=== PATIENT | female | born 1995 | race Caucasian/White ===

== ENCOUNTER 2016-12-11 12:15 | Inpatient (IN) ==
--- NOTE | 2016-12-11 13:29 | Diag Imaging Result Document ---
PROCEDURE NAME: ABDOMEN/PELVIS W/CONTRAST - 12/11/2016 CT ABDOMEN AND PELVIS WITH IV CONTRAST: COMPARISON: None available. FINDINGS: There is atelectasis at the lung bases, more prominent on the left and a trace left pleural effusion. There has been a very recent cholecystectomy. There is fluid that is tracking around the liver and extending from the gallbladder fossa to the mid and left side of the abdomen, and there is a fairly large amount of fluid layering in the pelvis. This is consistent with a biliary leak. Fluid is also seen tracking around the pancreas, and there are locules of fluid around the stomach. There is nothing specific for abscess. There is no evidence of appendicitis. The kidneys are unremarkable. The urinary bladder is unremarkable. The uterus appears normal and there are no adnexal lesions identified. There is a tampon in the vagina. The remainder of the solid viscera of the abdomen and pelvis and the remainder of the GI tract is essentially unremarkable. IMPRESSION: 1. Fairly large amount of fluid throughout the abdomen and in the pelvis that appears to represent a biliary leak from a recent cholecystectomy. 2. Other incidental/nonacute findings detailed above.
[2016-12-11] MEDS ORDERED: D5 1/2 NS 1,000 ML IV ONE (13:30)
[2016-12-11] MEDS ORDERED: KEFZOL 1 GM/D5W 50 ML ONE (14:13)
[2016-12-11] MEDS ORDERED: REGLAN ONE (14:55)
[2016-12-11] MEDS ORDERED: PEPCID ONE (14:56)
[2016-12-11] MEDS ORDERED: TRANSDERM-SCOP ONE (14:56)
[2016-12-11] MEDS ORDERED: DILAUDID ONE ×2 (16:27→18:53)
[2016-12-11] MEDS ORDERED: LR 1,000 ML ONE (16:42)
[2016-12-11] MEDS ORDERED: MARCAINE 0.25% PF/EPI 1:200,000 ONE (16:42)
[2016-12-11] MEDS ORDERED: FENTANYL ONE (18:15)
[2016-12-11] MEDS ORDERED: DIPRIVAN 1% ONE (18:15)
[2016-12-11] MEDS ORDERED: D5 1/2 NS 1,000 ML ONE (19:11)
[2016-12-11] MEDS ORDERED: TYLENOL PO PRN (20:40)
--- NOTE | 2016-12-11 21:52 | OPERATIVE NOTE ---
PROCEDURE DATE: 12/11/2016 PREOP: Postoperative bile leak 8 days status post cholecystectomy. PROCEDURE: Laparoscopy with drain placement right subphrenic space and pelvis. DESCRIPTION OF PROCEDURE: Patient was brought to the operating room. After satisfactory induction of IV and endotracheal anesthesia, athrombic TEDs and a Kwok catheter were placed. Her abdomen was broadly prepped and draped in the appropriate manner. Initially, the infraumbilical incision was reopened with removal of the Surgilon sutures. The peritoneum was entered and a Horace trocar was placed. The abdomen was insufflated to 3.5 L of carbon dioxide. On introduction of the camera, there was seen to be a large fluid collection around the liver in the left upper quadrant and right upper quadrant. The old right epigastric 10 mm trocar incision was likewise reopened and a 10 mm trocar was placed. Several hundred milliliters in the right subphrenic space was aspirated. A portion of it was sent for routine culture. In the left lower quadrant a 10 mm trocar was placed and another Kanu-Don drain was threaded down into the pelvis. A total of about 900 mL of bile was aspirated out. The drains were anchored with 0 Surgilon and the abdomen was deflated. The subumbilical incision underwent reclosure with 0 Surgilon. The other 2 skin incisions were closed with stainless steel clips. Sterile dressings were applied. Kwok catheter was removed. The patient was awakened and extubated in the operating room and transferred to recovery. ESTIMATED BLOOD LOSS: Around 5-10 mL.
[2016-12-11] MEDS: ZOFRAN IV PRN (22:00)
[2016-12-11] MEDS: NORCO-10 PO PRN (22:05)
[2016-12-12] MEDS: MORPHINE IV PRN ×4 (03:45→20:16)
[2016-12-12] MEDS: ZOFRAN IV PRN ×2 (03:46→17:55)
[2016-12-12] MEDS: NORCO-10 PO PRN ×4 (06:49→23:49)
[2016-12-12 07:07] LABS: BASO% 0.3 % (0.0-0.8); HEMATOCRIT 34.6 % (37.0-47.0); HEMOGLOBIN 11.5 g/dL (12.0-16.0); IMM GRAN# 0.04 X1000 (0.0-0.04); IMM GRAN% 0.3 % (0.0-0.5); LYMPH# 0.74 X1000 (1.2-3.4); LYMPH% 6.2 % (20.5-51.1); MANUAL DIFF NEEDED? YES; MCH 30.6 PG (27-31); MCHC 33.2 g/dL (33-37); MONO# 0.63 X1000 (0.11-0.59); MONO% 5.3 % (1.7-9.3); MPV 10.3 FL (7.4-10.4); NEUT% 87.9 % (42.2-75.2); PLT 353 X1000 (130-400); RBC 3.76 XMIL (4.2-5.4)
[2016-12-12 07:28] LABS: AGAP 15; ALBUMIN 2.9 g/dL (3.5-5.0); ALKALINE PHOSPHATASE 205 U/L (32-104); BUN 9 mg/dL (8-22); CALCIUM 8.9 mg/dL (8.8-10.2); CHLORIDE 97 mmol/L (98-107); COSMO 273; GOT 32 U/L (10-30); GPT 37 U/L (10-36); POTASSIUM 4.1 mmol/L (3.5-5.1); SODIUM 137 mmol/L (136-145); TCO2 25 mmol/L (25-35); TOTAL BILIRUBIN 0.93 mg/dL (0.20-1.00)
[2016-12-12 07:29] LABS: BANDS 8 % (0-1); LYMPHS 8 % (21-51); MONO 4 % (1-9)
--- NOTE | 2016-12-12 08:57 | Diag Imaging Result Document ---
PROCEDURE NAME: CHEST-PORTABLE - 12/12/2016 SINGLE FRONTAL RADIOGRAPH OF THE CHEST: COMPARISON: 12/02/2016. FINDINGS: Inspiration is suboptimal. There is likely minimal bibasilar atelectasis. The lungs are clear otherwise. There appears to be a trace effusion on the left. Cardiac silhouette and central vasculature are grossly unremarkable. IMPRESSION: Mild bibasilar atelectasis and suggestion of a trace effusion on the left.
--- NOTE | 2016-12-12 17:10 | PROGRESS NOTE ---
DATE: 12/12/2016 PRIMARY DOCTOR: Dr. Khan. SUBJECTIVE: Patient is currently resting in bed. She just recently came from walking in the hallways with the help of her . She complains of gassy bloated feeling and abdominal pain is slightly better. She had 2 drains placed yesterday by Dr. Khan which drained bilious fluid in the right drain and some serosanguineous with bilious drainage on the left tube. She denies any nausea vomiting, she denies any blood in the stools. OBJECTIVE: Vital signs: Temperature 98.5 degrees, pulse rate of 98, respiratory rate 18, blood pressure 109/65, saturating 98% room air. Body weight 185 pounds. General Appearance: Moderately nourished lying in bed in mild distress with abdominal pain. HEENT: Pale conjunctiva. No icterus. Pupils equal, reactive to light. Neck: Supple. Abdomen: Two drains noted one the right upper quadrant 1 left upper quadrant draining bilious drainage in right side and serosanguineous drainage in the left. Hypoactive bowel sounds. Extremities: No cyanosis, clubbing, edema. Neurologic: She is alert, awake, oriented. LABS: Hemoglobin and hematocrit is 11.5 and 34.6, white count of 11.9, platelet count of 353,000. Sodium of 137, potassium 4.1, chloride 97, bicarb 25, anion gap 15, BUN of 9, creatinine 0.6, glucose of 113, calcium is 8.9, total bilirubin is 0.93, AST 32, ALT 37, alkaline phosphatase is 205, total protein 7, albumin of 2.9. IMPRESSION AND PLAN: 1. Bile leak status post cholecystectomy 8 days ago status post laparoscopy with drain placement per Dr. Khan on 12/11/2016. The patient will continue to be monitored closely. We will schedule her for ERCP in couple of days. 2. She will continue on pain control and IV fluids, IV antiemetics and IV Protonix. 3. She will continue on full liquid diet. Orders per the primary care team. 4. I discussed the plan with the patient, at bedside and all questions answered.
[2016-12-12] MEDS ORDERED: LR 0 ML ONE (18:04)
[2016-12-12] MEDS: D5 1/2 NS 1,000 ML IV SCH (18:15)
--- NOTE | 2016-12-12 18:28 | CONSULTATION ---
DATE OF CONSULTATION: 12/11/2016 GASTROENTEROLOGY CONSULT: REASON FOR CONSULTATION: Possible bile leak. HISTORY OF PRESENT ILLNESS: This is a pleasant, young 21-year-old lady who had cholecystectomy 8 days ago and doing well until the last couple of days has increasing abdominal pain, abdominal distention. The patient was brought to the ER and a CT scan of the abdomen was done by Dr. German Khan. It shows free fluid in the abdomen, more in the left subphrenic space as well as pelvis. Dr. Khan thinks the patient has a bile leak. He asked me to see the patient. PAST MEDICAL HISTORY: Essentially unremarkable other than cholecystectomy. MEDICATIONS: As per MAR. SOCIAL HISTORY: She does not drink, smoke, or use drugs. REVIEW OF SYSTEMS: Negative other than HPI. PHYSICAL EXAMINATION: Revealed a pleasant lady, with in mild distress. Vital Signs: Pulse of 90, respiration 18, blood pressure 120/80, O2 saturation 100% on room air. HEENT: Questionable scleral icterus. Mild conjunctival pallor present. Neck: Supple. Trachea midline. Heart and Lungs: Normal. Abdomen: Distended, diffusely tender, but no significant signs of peritonitis. Bowel sounds are hypoactive. Extremities: Unremarkable. DIAGNOSTIC DATA: Lab data reviewed. CT scan reviewed as above. IMPRESSION: 1. Status post cholecystectomy. 2. Mild biliary ascites, most likely bile leak. I have talked to Dr. Khan. He is waiting on OR team to do a laparoscopy and put drains. Depending on the drainage of fluid over the weekend, I will decide to do an ERCP and possibly stent. She probably would require a stent. Dr. Khan and I talked about it and he agreed.
[2016-12-12] MEDS: PROTONIX IV SCH (20:16)
[2016-12-12] MEDS ORDERED: SODIUM CHLORIDE 0.9% INJ PRN (20:32)
[2016-12-13] MEDS: NORCO-10 PO PRN ×5 (03:46→22:07)
[2016-12-13] MEDS: D5 1/2 NS 1,000 ML IV SCH ×2 (04:26→17:56)
[2016-12-13] MEDS: PHENERGAN IV PRN (04:26)
[2016-12-13] MEDS: MORPHINE IV PRN (04:27)
[2016-12-13 06:27] LABS: BASO% 0.7 % (0.0-0.8); EOS# 0.23 X1000 (0.0-0.7); EOS% 3.1 % (0.0-10.0); HEMATOCRIT 30.8 % (37.0-47.0); LYMPH# 2.19 X1000 (1.2-3.4); LYMPH% 29.9 % (20.5-51.1); MANUAL DIFF NEEDED? NO; MCH 30.8 PG (27-31); MCHC 32.5 g/dL (33-37); MCV 94.8 FL (81-99); MONO% 9.5 % (1.7-9.3); MPV 9.3 FL (7.4-10.4); NEUT% 56.8 % (42.2-75.2); PLT 381 X1000 (130-400); RBC 3.25 XMIL (4.2-5.4)
[2016-12-13 06:32] LABS: INR 1.2; PROTIME 12.7 Seconds (9.2-11.7); PTT 27.2 Seconds (22.0-36.0)
[2016-12-13 06:59] LABS: AGAP 15; ALBUMIN 2.8 g/dL (3.5-5.0); ALKALINE PHOSPHATASE 178 U/L (32-104); BUN 8 mg/dL (8-22); CALCIUM 8.5 mg/dL (8.8-10.2); CHLORIDE 102 mmol/L (98-107); COSMO 281; GOT 46 U/L (10-30); GPT 54 U/L (10-36); POTASSIUM 3.4 mmol/L (3.5-5.1); SODIUM 142 mmol/L (136-145); TCO2 25 mmol/L (25-35); TOTAL BILIRUBIN 0.65 mg/dL (0.20-1.00); TOTAL PROTEIN 5.9 g/dL (6.3-8.3)
[2016-12-13] MEDS: LEVAQUIN 500 MG/D5W 100 ML IV SCH (17:58)
--- NOTE | 2016-12-13 19:57 | PROGRESS NOTE ---
DATE: 12/13/2016 SUBJECTIVE: The patient is currently resting in bed. Her is at the bedside. She complains of a slight improvement in her abdominal pain. She is passing flatus. Her nausea has improved. She was able to eat some liquid diet. She denies any fever or chills today. OBJECTIVE: Vitals: Temperature of 98.6 degrees, pulse of 89, respiratory rate 20, blood pressure 131/77, saturating 90% on room air. General Appearance: Moderately build, moderately nourished, lying in bed, in no acute distress. HEENT: Pale conjunctivae. No icterus. Neck: Supple. Abdomen: Drains in the right upper quadrant, left upper quadrant, draining bilious drainage. A very small amount of mild discomfort in the periumbilical region. Bowel sounds are hypoactive. Extremities: No cyanosis, clubbing, edema. Neurologic: She is alert, awake, oriented. LABORATORY: Her hemoglobin and hematocrit are 10 and 30.8, white count of 7.3, platelet count of 381,000. MCV of 94.8. INR 1.2. Sodium 142, potassium 3.4, chloride 102, bicarb 25, anion gap 15, BUN of 8, creatinine 0.7, glucose of 96, calcium 8.5, total bilirubin is 0.65, AST 46, ALT 54, alkaline phos 178, total protein 5.9, albumin of 2.8. IMPRESSION AND PLAN: 1. Bile leak status post cholecystectomy. Status post laparoscopy with drain placement with ongoing bile drainage which is slowing down as compared to yesterday. We will continue her on clear liquid diet. She will continue on IV fluids, IV antiemetics, IV Protonix. We will start her on IV antibiotics with IV Levaquin. 2. I discussed her case with Dr. Stapleton who is aware of her situation and Dr. Stapleton wants to perform endoscopic retrograde cholangiopancreatography on Wednesday. In this regard, the patient will be made nothing per oral status Wednesday. I discussed plan of care with the patient and family at the bedside and answered all questions.
[2016-12-13] MEDS: PROTONIX IV SCH ×2 (22:07→22:08)
[2016-12-14] MEDS: D5 1/2 NS 1,000 ML IV SCH ×5 (00:52→22:10)
[2016-12-14] MEDS: MORPHINE IV PRN (05:46)
[2016-12-14] MEDS: NORCO-10 PO PRN ×4 (06:51→23:07)
[2016-12-14] MEDS ORDERED: NEOSTIGMINE ONE (09:03)
[2016-12-14] MEDS ORDERED: ZOFRAN ONE (09:03)
[2016-12-14] MEDS ORDERED: TORADOL ONE (09:03)
[2016-12-14] MEDS ORDERED: XYLOCAINE-MPF 2% ONE (09:04)
[2016-12-14] MEDS ORDERED: DECADRON ONE (09:04)
[2016-12-14] MEDS ORDERED: LR 1,000 ML ONE (09:04)
[2016-12-14] MEDS ORDERED: QUELICIN (DOSE) ONE (09:04)
[2016-12-14] MEDS ORDERED: ROBINUL ONE (09:04)
[2016-12-14] MEDS ORDERED: ZEMURON ONE (09:04)
--- NOTE | 2016-12-14 09:22 | Diag Imaging Result Document ---
PROCEDURE NAME: HIDA SCAN W/O EJECT. FRACTION - 12/14/2016 HIDA SCAN WITHOUT EJECTION FRACTION: FINDINGS: 5.2 mCi of technetium 99 Choletec were administered. There is prompt uptake of radiopharmaceutical within the liver. There is quick emptying into the small bowel. No evidence of a leak. No abnormal radiopharmaceutical about the liver or in the pericolic gutter. IMPRESSION: No bile leak.
--- NOTE | 2016-12-14 14:19 | PROGRESS NOTE ---
DATE: 12/14/2016 SUBJECTIVE: Patient currently resting in bed. She is feeling better. She had a HIDA scan this morning which showed evidence of no bile leak today. The patient denies any fevers, rigors, or chills. She complains of mild soreness in abdomen. OBJECTIVE: Vital Signs: Temperature 98.3, pulse of 92, respiratory 16, blood pressure 115/80, saturating 97% on room air. General Appearance: Moderately nourished, lying in bed, in no distress. HEENT: Mild pallor. No icterus. Neck: Supple. Abdomen: Drains in the right upper quadrant and left lower quadrant draining a small amount of bilious drainage, draining amounts have been reducing every day. Discomfort in the periumbilical region. Extremities: No cyanosis, clubbing, edema. Neurologic: Alert, awake, oriented. LABORATORY STUDIES: Her hemoglobin and hematocrit are 10 and 30.8 from yesterday. Her liver enzymes yesterday revealed total bilirubin 0.65, AST 46, ALT 54, alkaline phosphatase 178, total protein 5.9, albumin of 2.8. Sodium 142, potassium 3.4, chloride 102, bicarb of 25, anion gap of 15, BUN of 8, creatinine 0.7, glucose of 96. IMPRESSION AND PLAN: Bile leak status post laparoscopy with drain placement per Dr. Khan and she has been noticed to have reduction in the drainage amounts and a HIDA scan this morning shows no active bile leak. She is scheduled for ERCP tomorrow with Dr. Stapleton. Patient will continue in the interim with IV fluids, IV antiemetics, IV Protonix and we started her on Levaquin yesterday. Above plan discussed with the patient and answered all questions.
[2016-12-14] MEDS: LEVAQUIN 500 MG/D5W 100 ML IV SCH (17:09)
[2016-12-14] MEDS: PROTONIX IV SCH (22:00)
[2016-12-14] MEDS: SODIUM CHLORIDE 0.9% INJ SCH (22:01)
[2016-12-15] MEDS: D5 1/2 NS 1,000 ML IV SCH ×4 (06:02→23:53)
[2016-12-15] MEDS: NORCO-10 PO PRN ×3 (09:10→19:56)
[2016-12-15] MEDS ORDERED: GLUCAGON ONE (12:31)
[2016-12-15] MEDS ORDERED: MYLICON DROPS (DOSE) MISC ONE (13:06)
[2016-12-15] MEDS ORDERED: DIPRIVAN 1% ONE (14:05)
[2016-12-15] MEDS ORDERED: ANESTHESIA PB SET 88 IN 5742 ONE (14:10)
[2016-12-15] MEDS ORDERED: LR 1,000 ML ONE (14:10)
[2016-12-15] MEDS ORDERED: EXTENSION SET 32 IN 4522 ONE (14:10)
[2016-12-15] MEDS: ZOFRAN IV PRN (14:26)
[2016-12-15] MEDS ORDERED: VERSED ONE (15:20)
[2016-12-15] MEDS: MORPHINE IV PRN (15:34)
--- NOTE | 2016-12-15 15:35 | Diag Imaging Result Document ---
PROCEDURE NAME: ERCP-BILIARY AND PANCREATIC - 12/15/2016 ERCP: COMPARISON: None available. FINDINGS: Eleven spot fluoroscopic images of the biliary system were provided, which was performed during ERCP by Dr. Hansen. There is perhaps mild blunting of the common bile duct as it joins the duodenum. It is unknown if this represents a filling defect. Upon opacification of the common bile duct, there was progressive development of what appeared to be intraperitoneal contrast suggesting a biliary leak to the right of the common bile duct. On the final image, there was a newly placed biliary stent in place. IMPRESSION: As above. Please correlate with live fluoroscopic imaging.
--- NOTE | 2016-12-15 17:29 | OPERATIVE NOTE ---
PROCEDURE DATE: 12/15/2016 PROCEDURE: ERCP, endoscope with sphincterotomy and stent placement. PREOPERATIVE DIAGNOSIS: Bile leak. POSTOPERATIVE DIAGNOSIS: Leak at the status post sphincterotomy and stent placed across the cystic duct all the way to bifurcation. DESCRIPTION OF PROCEDURE: After informed consent and adequate intravenous sedation, the scope was introduced to the esophagus, stomach and duodenum. Ampulla appears normal. Cholangiogram initially did not reveal any leak but on further filling of the bile duct there is leak right around the cystic duct, and by the time the procedure is finished, the leak was tracked down through the drains into the back. At this point, a wide sphincterotomy was done and a 7 cm 10- Tajik stent was placed across the bile duct across the cystic duct region and all the way to the bifurcation, again the cholangiogram was done. There was no leak. The scope was withdrawn. The patient tolerated the procedure, was transported back to recovery in satisfactory condition.
[2016-12-15] MEDS: LEVAQUIN 500 MG/D5W 100 ML IV SCH (17:37)
[2016-12-15] MEDS: PROTONIX IV SCH ×2 (19:55→22:34)
[2016-12-15] MEDS: SODIUM CHLORIDE 0.9% INJ SCH (19:56)
[2016-12-15] MEDS: PHENERGAN IV PRN (23:53)
[2016-12-16] MEDS: D5 1/2 NS 1,000 ML IV SCH ×2 (02:21→08:26)
[2016-12-16] MEDS: NORCO-10 PO PRN ×2 (02:21→08:24)
[2016-12-16 07:52] VITALS: BP 113/70
== END 2016-12-16 10:18 | disposition home or self-care (01) | DRG 395 ==
LOC: OPS 12:15 → CT 12:15 → EDSTATUS 13:05 → OBSVTOIN 14:27 → 4N 14:27
PROVIDERS: ADMIT Surgery; ATTEND Surgery
PROC: 0F788DZ Dilation of Cystic Duct with Intraluminal Device, Via Natural or Artificial Opening Endoscopic (ICD-10-PCS; 2016-12-11)
PROC: BF101ZZ Fluoroscopy of Bile Ducts using Low Osmolar Contrast (ICD-10-PCS; 2016-12-11)
PROC: 0W9G40Z Drainage of Peritoneal Cavity with Drainage Device, Percutaneous Endoscopic Approach (ICD-10-PCS; principal; 2016-12-11 17:03)
PROC: 0F798DZ Dilation of Common Bile Duct with Intraluminal Device, Via Natural or Artificial Opening Endoscopic (ICD-10-PCS; 2016-12-15 12:48)
DX: K91.89 Other postprocedural complications and disorders of digestive system (principal); K83.8 Other specified diseases of biliary tract
CPT/HCPCS: 71010; 74177; 74330; 78226; 80053; 81025; 85025; 85610; 85730; 87070; 87075; 87205; 94761; 94799; 96374; 96375; A9537; C2617; C9113; J0330; J0690; J1100; J1170; J1610; J1885; J2250; J2270; J2405; J2550; J2765; J3010; J7120; Q9966; Q9967; J2710; S0028; S0164

== ENCOUNTER 2017-05-01 01:49 | Observation (INO) ==
[2017-05-01 02:36] LABS: MANUAL DIFF NEEDED? NO
[2017-05-01 02:37] LABS: BASO% 0.4 % (0.0-0.8); EOS# 0.05 X1000 (0.0-0.7); EOS% 0.7 % (0.0-10.0); HEMATOCRIT 36.9 % (37.0-47.0); HEMOGLOBIN 12.7 g/dL (12.0-16.0); IMM GRAN# 0.01 X1000 (0.0-0.04); IMM GRAN% 0.1 % (0.0-0.5); LYMPH% 33.4 % (20.5-51.1); MCH 32.1 PG (27-31); MCHC 34.4 g/dL (33-37); MCV 93.2 FL (81-99); MONO# 0.52 X1000 (0.11-0.59); MONO% 7.5 % (1.7-9.3); MPV 9.2 FL (7.4-10.4); NEUT% 57.9 % (42.2-75.2); PLT 255 X1000 (130-400); RBC 3.96 XMIL (4.2-5.4)
[2017-05-01 02:48] LABS: BILIRUBIN URINE NEGATIVE (NEGATIVE); BLOOD URINE 4+ (NEGATIVE); CLARITY HAZY (CLEAR); COLOR PINK; GLUCOSE URINE NEGATIVE (NEGATIVE); LEUKOCYTES URINE NEGATIVE (NEGATIVE); NITRITE URINE NEGATIVE (NEGATIVE); PROTEIN URINE TRACE mg/dL (NEGATIVE); SP GRAVITY URINE 1.005; UROBILINOGEN URINE NORMAL
[2017-05-01] MEDS ORDERED: TYLENOL ONE (02:54)
[2017-05-01] MEDS ORDERED: TYLENOL PO ONE (02:54)
[2017-05-01 02:59] LABS: URINE CULTURE PL NEEDED? YES; URINE EPITHELIAL CELLS <10 /HPF (<10); URINE SOURCE CLEAN CATCH; URINE WBC <10 /HPF (<10)
--- NOTE | 2017-05-01 03:04 | PROVIDER DOCUMENTATION ---
This chart was entered by Marilyn Anne Scribe, acting as scribe for Heber Alexander MD. HPI-Female /OB/Breast - General Chief Complaint: Female Stated Complaint: PREG/BLEEDING Time Seen by Provider: 05/01/17 02:05 Source: reports: patient Allergies/Adverse Reactions: Patient Allergies Allergy/AdvReac Type Severity Reaction Status Date / Time No Known Allergies Allergy Verified 05/01/17 01:57 Home Medications: Home Medication List Medication Instructions Recorded Confirmed Last Taken Type NK [No Home Medications] 05/01/17 05/01/17 Unknown History - History of Present Illness-Female /OB Nature of Presenting Problem: 21 Y/O WF, ,AB positive, currently 6+ weeks ,who presents to ER with the complaint of 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 pt states that she is as she took preg test at home and they turned out to be positive. pt states that her last period was on 16 march and after that she started bleeding. pt states that she feels cramping in lower abd and L side of back. Pt has used 1 pad tonight. Does patient report she is ?: Yes Location of complaint: reports: LLQ, vaginal (bleeding) Radiation: reports: none Quality of Pain: reports: cramping Severity in ED: reports: mild Onset/Duration: reports: just prior to arrival Timing: reports: still present Context/Activities at Onset: reports: none Vaginal Symptoms: reports: other (bleeding) Vaginal Bleeding Amount: Medium/Moderate Urinary Symptoms: reports: no symptoms Related Symptoms: reports: vaginal bleeding Sexual intercourse history: reports: Not Active Associated Symptoms: reports: constipation, nausea, other (lower back pain L side, LLQ pain and vaginal bleeding) Similar Symptoms Previously?: No Recently seen or treated by another doctor?: No - LMP/ History Menstrual Status: currently Review of Systems - Adult - REVIEW OF SYSTEMS - ADULT Constitutional: reports: no symptoms reported Eyes: reports: no symptoms reported Ears, Nose, Mouth & Throat: reports: no symptoms reported Cardiovascular: reports: no symptoms reported Respiratory: reports: no symptoms reported Gastrointestinal: reports: abdominal pain (LLQ), nausea. denies: vomiting Genitourinary: reports: other (Vaginal Bleedig). denies: dysuria, hematuria Musculoskeletal: reports: back pain (L). denies: neck pain Integumentary: reports: no symptoms reported Neurological: reports: no symptoms reported Psychiatric: reports: no symptoms reported Endocrine: reports: no symptoms reported Hematologic/Lymphatic: reports: no symptoms reported Allergic/Immunologic: reports: no symptoms reported All Other Systems: Reviewed and Negative Past History - Adult - PAST MEDICAL HISTORY-ADULT Review of Records: reports: Old Records Reviewed, Nursing Assessment Review - PRIOR SURGERIES/PROCEDURES Surgical/Procedure History: reports: cholecystectomy, other (stent removed) - IMMUNIZATION STATUS Childhood Immunizations: See Nurse Assessment Flu Vaccine: See Nurse Assessment Physical Exam-General - PHYSICAL EXAM-ADULT Initial Vital Signs Reviewed: Yes - CONSTITUTIONAL General Appearance: appears well, alert - EYES Eyes: PERRL/EOMI, pink conjunctivae - HEAD, EARS, NOSE, MOUTH & THROAT HENMT: moist mucous membranes, normal ENT inspection - NECK Neck: non-tender, full range of motion, supple - RESPIRATORY Respiratory: chest non-tender, lungs clear, normal breath sounds - CARDIOVASCULAR Cardiovascular: normal peripheral pulses, regular rate, rhythm - GASTROINTESTINAL (ABDOMEN) Abdominal Exam: normal bowel sounds, tenderness (LLQ) - MUSCULOSKELETAL Back Exam: normal inspection, CVA tenderness (L) Extremity: normal range of motion, non-tender, normal gait - SKIN Integumentary: normal color, normal turgor, warm/dry - NEUROLOGIC Neurologic: grossly normal, no motor/sensory deficits - PSYCHIATRIC Psych/Mental Status: normal mood/affect, normal thought content, normal thought process, oriented x 3 Progress - PLAN OF CARE/RESULTS Progress/Plan/Lab Results: Vital Signs - 8 hr 05/01/17 01:52 05/01/17 05:00 Temperature 98.8 F 97.0 F L Pulse Rate 81 81 Respiratory Rate 20 20 Blood Pressure 132/97 115/74 O2 Sat by Pulse Oximetry 100 99 Bedside Urine ED: Urine Bedside Start: 05/01/17 02:06 Freq: ORDERED Status: Active Activity Type Activity Date Activity User E-Sign Co-Sign Detail Recorded Client Recorded Date Recorded By Document 05/01/17 02:07 [id number] 05/01/17 02:08 [id number] 05/01/17 02:07 Point of Care [Bedside Point of Care] -Lot # [id number] - Results Positive -Control Line Visible? Yes Laboratory Results - last 24 hr 05/01/17 05/01/17 05/01/17 02:00 02:30 02:30 WBC 6.89 RBC 3.96 L Hgb 12.7 Hct 36.9 L MCV 93.2 MCH 32.1 H MCHC 34.4 RDW Std Deviation 12.5 Plt Count 255 MPV 9.2 Immature Gran % (Auto) 0.1 Neut % (Auto) 57.9 Lymph % (Auto) 33.4 [place] % (Auto) 7.5 Eos % (Auto) 0.7 Baso % (Auto) 0.4 Immature Gran # (Auto) 0.01 Neut # (Auto) 3.98 Lymph # (Auto) 2.30 [place] # (Auto) 0.52 Eos # (Auto) 0.05 Baso # (Auto) 0.03 Ser , Semi-Qnt 1464.0 Urine Source CLEAN CATCH Urine Color PINK Urine Clarity HAZY A Urine pH 7.0 Ur Specific [place] 1.005 Urine Protein TRACE A Urine Ketones NEGATIVE Urine Blood 4+ Urine Nitrite NEGATIVE Urine Bilirubin NEGATIVE Urine Urobilinogen NORMAL Urine Microscopic RBC 10-20 A Urine WBC NEGATIVE Urine Microscopic WBC <10 Ur Epithelial Cells <10 Urine Bacteria 3+ Urine Glucose NEGATIVE Blood Type 05/01/17 02:30 WBC RBC Hgb Hct MCV MCH MCHC RDW Std Deviation Plt Count MPV Immature Gran % (Auto) Neut % (Auto) Lymph % (Auto) [place] % (Auto) Eos % (Auto) Baso % (Auto) Immature Gran # (Auto) Neut # (Auto) Lymph # (Auto) [place] # (Auto) Eos # (Auto) Baso # (Auto) Ser , Semi-Qnt Urine Source Urine Color Urine Clarity Urine pH Ur Specific [place] Urine Protein Urine Ketones Urine Blood Urine Nitrite Urine Bilirubin Urine Urobilinogen Urine Microscopic RBC Urine WBC Urine Microscopic WBC Ur Epithelial Cells Urine Bacteria Urine Glucose Blood Type AB POSITIVE Orders Category Date Time Status ED: Urine Bedside ORDERED Care 05/01/17 02:06 Active US PELVIC NON-PIANO ACCOMPANIST COMPLETE [US] Stat Exams 05/01/17 02:14 Taken ABORH [BBK] Stat Lab 05/01/17 02:30 Completed CBC WITH DIFF [HEME] Stat Lab 05/01/17 02:30 Completed QUANT TEST Stat Lab 05/01/17 02:[address] W/POSS RFLX CULT [URINALYSIS] Stat Lab 05/01/17 02:00 Completed URINE CULTURE [RM] Routine Lab 05/01/17 03:00 Ordered Acetaminophen [Tylenol] Med 05/01/17 02:54 Discontinued 650 mg .ROUTE .STK-MED ONE Acetaminophen [Tylenol] Med 05/01/17 02:54 Discontinued 650 mg PO NOW ONE Diltiazem [Cardizem] Med 05/01/17 03:41 Discontinued 30 mg PO NOW ONE Result Diagrams: 05/01/17 02:30 - ULTRASOUND (By Radiology) 1 US Study: Abdomen (no IUP, mildly thickened endometrium,small to moderate fluid in culdesac), Transvaginal - CONSULTS/PCP/HOSPITALIST Notification #1 *Consult/PCP/Hospitalist*: Dr. 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 Time Discussed: 04:55 Consult Disposition: Admit (admit for observation with serial quant HCG's) Departure - Departure Date of Disposition Decision: 05/01/17 Time of Disposition Decision: 05:02 DIAGNOSIS: Threatened miscarriage in early Disposition: ADMITTED INPATIENT 09 Certified Medical Emergency: Emergent Condition: Stable Referrals and Follow-Ups: None,PCP [Primary Care Provider] - - Critical Care Note This patient required my direct & personal management of CC.: Yes Attestation - Physician/ HEIDI Attestation The physician spent face to face time with patient:: Yes Advanced Practice Provider documentation review:: Supervising physician onsite and consulted in the evaluation and care of this patient. The physician did have a face to face encounter with the patient. This chart was documented by the indicated scribe, (Marilyn Anne, Rehana) and accurately reflects the services I performed and decisions made by me, Heber Alexander MD, as attested by the provider's signature.
[2017-05-01] MEDS ORDERED: CARDIZEM PO ONE (03:41)
[2017-05-01] MEDS ORDERED: NS 1,000 ML IV ONE (05:05)
[2017-05-01] MEDS: TYLENOL PO PRN ×3 (09:07→17:25)
--- NOTE | 2017-05-01 12:00 | Diag Imaging Result Doc PS360 ---
EXAM: US PELVIC NON-MANAGER HI COMPLETE - 05/01/2017 HISTORY: threatened miscarriage TECHNIQUE: Exam performed using transabdominal and transvaginal probes. COMPARISON: None. FINDINGS: There is no visible intrauterine . The endometrial echo measures 1.2 cm in thickness and is heterogeneous. The right ovary is not visualized. The left ovary is visualized, is unremarkable, and demonstrate blood flow signal Doppler images. There is no adnexal mass identified. There is a medium amount of free fluid in the cul-de-sac. IMPRESSION: No visible intrauterine . Heterogeneous endometrial echo, which measures 1.2 cm in thickness. Right ovary not visualized. Unremarkable left ovary. No visible ectopic . Medium amount of free fluid in cul-de-sac. In the presence of a positive test, considerations include very early intrauterine which is too early to be visible by ultrasound; nonvisualized ectopic ; and missed . Correlation with serial quantitative beta hCG levels, and follow-up ultrasound as needed, is recommended. The post secondary professional radiologist provided primary results at 4:23 AM on 05/01/2017. Electronically signed by Carlos Moyer 05/01/2017 11:57 AM
--- NOTE | 2017-05-01 12:07 | HISTORY AND PHYSICAL ---
ADMITTING DIAGNOSIS: Possible tubal . SUMMARY: Carolyn Arriaga is a 21-year-old primigravida who states her last menstrual period was mid March, and she was trying to get . She had a positive test about a week ago. She presented to the emergency department last night with the sudden onset vaginal bleeding. Her hemoglobin and hematocrit was 12.7/36.9 and a quantitative hCG was 1464. An ultrasound was performed which showed no intrauterine with a mildly thickened endometrium. There was [id number] fluid in the cul-de-sac. The adnexa was not described. Due to concerns of an ectopic , she is admitted for further evaluation. PAST MEDICAL HISTORY: Patient has had her gallbladder removed. Otherwise, she has no chronic medical or surgical illnesses. She has no history of pelvic surgery or pelvic inflammatory disease. CURRENT MEDICATIONS: None. ALLERGIES: None. PHYSICAL EXAMINATION: GENERAL: Examination shows a well-developed, well-nourished female. VITAL SIGNS: Stable. She is afebrile. CARDIOVASCULAR: Regular rate and rhythm without murmurs, rubs, gallops. PULMONARY: Clear. BREASTS: No masses. ABDOMEN: Nontender. EXTREMITIES: No clubbing, edema or cyanosis. IMPRESSION: Possible ectopic versus early intrauterine versus missed . PLAN: We will do serial H and Hs and quantitative hCGs. There was a quantitative hCG done earlier this morning. The first one was at 2:30 this morning. The second one was at 7:20. The one at 7:20 had dropped to 1334. If her hemoglobin and hematocrit remain stable and her quantitative hCGs continue to drop, most likely the diagnosis will be a missed . It is too early for me to make that decision. We had spent a long time discussing miscarriages, ectopic pregnancies, and there diagnosis and treatment. cc: Herman Rich MD
[2017-05-01 13:38] LABS: HEMATOCRIT 36.8 % (37.0-47.0); HEMOGLOBIN 12.3 g/dL (12.0-16.0); MCH 30.9 PG (27-31); MCHC 33.4 g/dL (33-37); MCV 92.5 FL (81-99); MPV 9.2 FL (7.4-10.4); RBC 3.98 XMIL (4.2-5.4)
[2017-05-01 16:13] VITALS: BP 111/82
--- NOTE | 2017-05-01 17:16 | DISCHARGE SUMMARY ---
ADMISSION DATE: 05/01/2017 DISCHARGE DATE: 05/01/2017 ADMITTING DIAGNOSIS: Possible tubal . PRINCIPAL DIAGNOSIS: Probable missed . PRINCIPAL PROCEDURE: Observation. SUMMARY: Scarlett Arriaga is a 21-year-old primigravida who presented to the emergency room late last night with vaginal bleeding and a positive test. Her initial hemoglobin and hematocrit was 12.7/36.9, initial HCG was 1464. An ultrasound was performed which showed no intrauterine and a mildly thickened endometrium, is small to moderate fluid in the cul-de-sac. The adnexa were not described on the report. She was admitted to the hospital for observation. Through the day of her vital signs have been stable. She is reporting some bleeding and mild pain primarily on the left side. Repeat hemoglobin and hematocrit was 12.3/36.8. Her abdomen is nontender. There is no rebound, rigidity or guarding. Cardiac, pulmonary examinations are normal. We discussed these findings of dropping HCGs and that the most likely diagnosis a missed AB. The patient desires to go home but will follow up in the office on Wednesday. She is to call the office Wednesday and will do a quantitative HCG and then I will see her on Wednesday to follow up on the results. She is to return to the hospital immediately if she has worsening pain or heavier bleeding. Will send her home with [place] for pain and again follow up in the office first the week. cc: Herman Rich MD
== END 2017-05-01 17:59 | disposition home or self-care (01) ==
LOC: P.ED 01:49 → P.WC 01:49
PROVIDERS: ADMIT Obstetrics & Gynecology; ATTEND Obstetrics & Gynecology